=== PATIENT | male | born 1980 | race Caucasian/White ===

== ENCOUNTER 2017-09-21 08:18 | Emergency (ER) | payer OTHER ==
[~2017-09-21] VITALS: Ht 175.3 cm; Wt 123.1 kg
[~2017-09-21 08:18] MED LIST: FIORTAB4 PO; Z.0.NO CURRENT MEDS
[2017-09-21 08:23] VITALS: BP 154/94; PULSE 60; RESP 18; TEMP 97.8; O2SAT 98
[2017-09-21] MEDS ORDERED: HYDR25TA5 PO (08:35)
[2017-09-21] MEDS ORDERED: METF500T PO (08:35)
[2017-09-21] MEDS ORDERED: LOSA50TA PO (08:35)
[2017-09-21 09:00] VITALS: O2SAT 98
[2017-09-21] MEDS ORDERED: PROCHLORPERAZINE INJ 10 MG/2 ML VIAL IVP ONE (09:00)
[2017-09-21] MEDS ORDERED: diphenhydrAMINE HCL 50 MG/ML VIAL IVP ONE (09:00)
[2017-09-21] MEDS ORDERED: SODIUM CHLORIDE 0.9% FLUSH 10 ML FLUSH IVF PRN (09:00)
[2017-09-21] MEDS ORDERED: ACETAMINOPHEN 325 MG TAB PO ONE (09:00)
[2017-09-21 09:11] LABS: AUTOMATED NEUTROPHIL # 4.4 TH/MM3 (1.8-7.7); BASOPHIL % 0.6 % (0.0-2.0); EOSINOPHIL # 0.3 TH/MM3 (0-0.4); EOSINOPHIL % 4.6 % (0.0-4.0); HEMOGLOBIN 15.1 GM/DL (13.0-17.0); LYMPH % 29.3 % (9.0-44.0); LYMPHOCYTE # 2.2 TH/MM3 (1.0-4.8); MEAN CORPUSCULAR HEMOGLOBIN 29.2 PG (27.0-34.0); MEAN CORPUSCULAR HGB CONC 33.6 % (32.0-36.0); MEAN PLATELET VOLUME 8.7 FL (7.0-11.0); MONO % 6.3 % (0.0-8.0); MONOCYTE # 0.5 TH/MM3 (0-0.9); NEUT % 59.2 % (16.0-70.0); PLATELET COUNT 206 TH/MM3 (150-450); RED BLOOD COUNT 5.17 MIL/MM3 (4.50-5.90); RED CELL DISTRIBUTION WIDTH 12.6 % (11.6-17.2); WHITE BLOOD COUNT 7.4 TH/MM3 (4.0-11.0)
--- NOTE | 2017-09-21 09:22 | PD ---
HPI Chief Complaint: Hypertension Time Seen by Provider: 08:44 Travel History International Travel<30 days: No Contact w/Intl Traveler<30days: No Traveled to known affect area: No History of Present Illness HPI 37-year-old male history of hypertension arrives with headache and elevated blood pressure as high as 190/100 at home. He typically takes losartan and has been compliant with that and it has until now effectively managed hypertension. He reports drinking a few drinks in his garage last night however denies any drug or alcohol abuse otherwise. No chest pressures breath. The patient has a generalized headache which she describes as hammers hitting his head 60 times a minute. The symptoms started about one in the morning or severe at that time. He denies using any NSAIDs. Two days prior had suffered with some paresthesias involving both upper extremities. PFSH Past Medical History Cardiovascular Problems: Yes (HTN) Diabetes: Yes Patient Takes Glucophage: Yes Hypertension: Yes Tetanus Vaccination: > 5 Years Influenza Vaccination: No Past Surgical History Surgical History: No Previous Surgery Social History Alcohol Use: No Tobacco Use: Yes Substance Use: No Allergies-Medications (Allergen,Severity, Reaction): Coded Allergies: penicillin G (Unverified Allergy, Unknown, TOLD CHILD, 09/21/17) Reported Meds & Prescriptions Reported Meds & Active Scripts Active Reported Metformin (Metformin HCl) 500 Mg Tab 500 Mg PO BIDPC Hydrochlorothiazide 25 Mg Tab 25 Mg PO DAILY Losartan (Losartan Potassium) 50 Mg Tab 50 Mg PO BID Review of Systems Except as stated in HPI: all other systems reviewed are Neg Physical Exam Narrative GENERAL: 37-year-old male well-nourished well-developed mild distress secondary to pain and/or anxiety Vital Signs Date Time Temp Pulse Resp B/P (MAP) Pulse Ox O2 Delivery O2 Flow Rate FiO2 09/21/17 08:23 97.8 60 18 154/94 (114) 98 Blood pressure in the exam room 174/100 SKIN: Warm and dry. HEAD: Atraumatic. Normocephalic. EYES: Pupils equal and round. No scleral icterus. No injection or drainage. ENT: No nasal bleeding or discharge. Mucous membranes pink and moist. NECK: Trachea midline. No JVD. CARDIOVASCULAR: Regular rate and rhythm. RESPIRATORY: No accessory muscle use. Clear to auscultation. Breath sounds equal bilaterally. GASTROINTESTINAL: Abdomen soft, non-tender, nondistended. Hepatic and splenic margins not palpable. MUSCULOSKELETAL: Extremities without clubbing, cyanosis, or edema. No obvious deformities. NEUROLOGICAL: Upper extremity sensation normal. Upper extremity motor function 5 over 5. Cranial nerves III through XII normal. Normal speech memory and mentation. PSYCHIATRIC: Appropriate mood and affect; insight and judgment normal. Data Data Last Documented VS Vital Signs Date Time Temp Pulse Resp B/P (MAP) Pulse Ox O2 Delivery O2 Flow Rate FiO2 09/21/17 09:00 98 Room Air 09/21/17 08:23 97.8 60 18 154/94 (114) Orders Orders Complete Blood Count With Diff (09/21/17 09:00) Basic Metabolic Panel (Bmp) (09/21/17:00) Ct Brain W/O Iv Contrast(Rout) (09/21/17:00) Ecg Monitoring (09/21/17 09:00) Iv Access Insert/Monitor (09/21/17 09:00) Oximetry (09/21/17 09:00) Sodium Chloride 0.9% Flush (Ns Flush) (09/21/17 09:00) Acetaminophen (Tylenol) (09/21/17 09:00) Prochlorperazine Inj (Compazine Inj) (09/21/17 09:00) Diphenhydramine Inj (Benadryl Inj) (09/21/17 09:00) I-Stat Profile (09/21/17 09:00) Labs Laboratory Tests Test 09/21/17 09:00 White Blood Count 7.4 TH/MM3 Red Blood Count 5.17 MIL/MM3 Hemoglobin 15.1 GM/DL Bedside Hemoglobin G/DL Hematocrit 45.0 % Bedside Hematocrit % Mean Corpuscular Volume 87.0 FL Mean Corpuscular Hemoglobin 29.2 PG Mean Corpuscular Hemoglobin Concent 33.6 % Red Cell Distribution Width 12.6 % Platelet Count 206 TH/MM3 Mean Platelet Volume 8.7 FL Neutrophils (%) (Auto) 59.2 % Lymphocytes (%) (Auto) 29.3 % Monocytes (%) (Auto) 6.3 % Eosinophils (%) (Auto) 4.6 % Basophils (%) (Auto) 0.6 % Neutrophils # (Auto) 4.4 TH/MM3 Lymphocytes # (Auto) 2.2 TH/MM3 Monocytes # (Auto) 0.5 TH/MM3 Eosinophils # (Auto) 0.3 TH/MM3 Basophils # (Auto) 0.0 TH/MM3 CBC Comment DIFF FINAL Differential Comment Bedside Sodium 138 MMOL/L Creatinine 0.89 MG/DL Random Glucose 102 MG/DL Calcium Level 9.2 MG/DL Sodium Level 138 MEQ/L Potassium Level 4.4 MEQ/L Chloride Level 107 MEQ/L Carbon Dioxide Level 22.9 MEQ/L Bedside Potassium 4.3 MMOL/L Bedside Chloride 106 MMOL/L Anion Gap 8 MEQ/L Bedside Blood Urea Nitrogen 20 MG/DL Bedside Creatinine 0.8 MG/DL Estimat Glomerular Filtration Rate 97 ML/MIN Bedside Glucose 100 MG/DL MDM Medical Decision Making Medical Screen Exam Complete: Yes Emergency Medical Condition: Yes Medical Record Reviewed: Yes Differential Diagnosis Hypertension, metabolic abnormality, intracranial hemorrhage, paresthesia Narrative Course CBC & BMP Diagram 09/21/17 09:00 Calcium Level 9.[address] 09/21/17 0900 Signed Impressions: Service Date/Time: Thursday, September 21, 2017 09:25 - CONCLUSION: Negative for acute process Conor Aponte MD FACR The [id number] BUN is normal The patient is resting comfortably and feels better, is alert and in no distress. The patients results and examination findings were discussed. The repeat examination is unremarkable and benign. The history, exam, diagnostic testing, and current condition do not suggest any significant pathology to warrant further testing, continued ED treatment, admission, or surgical evaluation at this point. The vital signs have been stable. The patient does not have uncontrollable pain, intractable vomiting, or other significant symptoms. The patient's condition is stable and appropriate for discharge. The patient will pursue further outpatient evaluation with a primary care physician or other designated or consulting physician as indicated in the discharge instructions. The patient expressed understanding and was agreeable with this plan. Diagnosis Primary Impression: Hypertension Qualified Codes: I10 - Essential (primary) hypertension Additional Impression: Cephalgia Qualified Codes: R51 - Headache Referrals: Primary Care Physician call for appointment Med/Other Pt SpecificInfo: No Change to Meds Disposition: 01 DISCHARGE HOME Condition: Stable Shashi Gutiérrez MD Sep 21, 2017 09:22
--- NOTE | 2017-09-21 09:37 | RADRPT ---
EXAM DATE/TIME: 09/21/2017 09:25 [facility] COMPARISON: No previous studies available for comparison. INDICATIONS : Cephalgia. RADIATION DOSE: 66.27 CTDIvol (mGy) MEDICAL HISTORY : Hypertension. Diabetes mellitus type 2. SURGICAL HISTORY : None. ENCOUNTER: Initial ACUITY: 1 day PAIN SCALE: 8/10 LOCATION: cranial TECHNIQUE: Multiple contiguous axial images were obtained of the head. Using automated exposure control and adj ustment of the mA and/or kV according to patient size, radiation dose was kept as low as reasonably a chievable to obtain optimal diagnostic quality images. DICOM format image data is available electro nically for review and comparison. FINDINGS: CEREBRUM: The ventricles are normal for age. No evidence of midline shift, mass lesion, hemorrhage or acute in farction. No extra-axial fluid collections are seen. POSTERIOR FOSSA: The cerebellum and brainstem are intact. The 4th ventricle is midline. The cerebellopontine angle i s unremarkable. EXTRACRANIAL: The visualized portion of the orbits is intact. SKULL: The calvaria is intact. No evidence of skull fracture. CONCLUSION: Negative for acute process Conor Aponte MD FACR on September 21, 2017 at 9:31 Board Certified Radiologist. This report was verified electronically.
[2017-09-21 09:48] LABS: CALCIUM 9.2 MG/DL (8.5-10.1)
[2017-09-21 09:49] LABS: BICARBONATE 22.9 MEQ/L (21.0-32.0); GLUCOSE,RANDOM 102 MG/DL (74-106)
[2017-09-21 09:53] LABS: CREATININE 0.89 MG/DL (0.60-1.30); GLOMERULAR FILTRATION RATE 97 ML/MIN (>89)
[2017-09-21 09:59] LABS: CHLORIDE 107 MEQ/L (98-107); SODIUM (NA) 138 MEQ/L (136-145)
[2017-09-21 10:07] LABS: BLOOD UREA NITROGEN 18 MG/DL (7-18)
[2017-09-21 10:10] VITALS: BP 164/102; PULSE 88; RESP 18; O2SAT 98
== END 2017-09-21 10:15 | disposition home or self-care (01) ==
LOC: PHED 08:18
DX: I10 Essential (primary) hypertension (principal); R51 Headache; E11.9 Type 2 diabetes mellitus without complications; Z72.0 Tobacco use; Z79.84 Long term (current) use of oral hypoglycemic drugs
CPT/HCPCS: 70450; 80048; 85025; 96374; 96375; 99284; J0780; J1200